=== PATIENT | female | born 1975 | race Two or more races ===

== ENCOUNTER 2024-07-03 18:12 | Inpatient (IN) | payer MEDICAID, SELFPAY ==
[2024-07-03] VITALS (39 sets, daily range): BP systolic 137–204; BP diastolic 84–145; PULSE 72–111; RESP 13–97; TEMP 36.1–37; O2SAT 20–99; BMI 31.0
--- NOTE | 2024-07-03 18:15 | EKG_ITS ---
[facility] Test Date: 2024-07-03 Pat Name: JENIFER HUGHES Department: Room: - Gender: Female Minister: : 1975 Requested By: Joesph Rollins Order Number: [id number] Reading MD: Joesph Rollins Measurements Intervals [place] Rate: 86 P: 39 [place]: 150 QRS: 1 QRSD: 87 T: 13 QT: 382 QTc: 458 Interpretive Statements SINUS RHYTHM MODERATE VOLTAGE CRITERIA FOR LVH, CONSIDER NORMAL VARIANT [MEETS CRITERIA IN ONE OF: R(aVL), S(V1), R(V5), R(V5/V6)+S(V1)] Compared to ECG 12/15/2023 08:56:17 No significant changes /store/S0/[id number].pdf
--- NOTE | 2024-07-03 18:20 | XR_ITS ---
Examination: CT brain head without contrast. 2-D sagittal coronal reconstructions Date and time of exam:July 03, 2024 1824 hrs. Indications: Stroke alert, onset left arm numbness beginning 2.5 hours ago CTDI: vol (mGy):50.3 DLP: (mGycm):997 Technique: Multiple CT axial sections of the brain have been obtained, 5 mm slice thickness. Contrast has not been administered. 2-D sagittal, coronal reconstructions have been obtained Low dose protocols were performed. One or more of the following dose reduction techniques were used; automated exposure control, adjustment of the mA and/or KV according to patient size, use of iterative reconstruction technique. Findings: No significant ventricular enlargement. Intra-axial or extra-axial hemorrhage density is not seen. No mass effect or midline shift Basal cisterns are not remarkable. Fourth ventricle is midline. Cranial vault intact. Impression: Negative for acute hemorrhage, mass effect or midline shift As clinically warranted, brain MRI follow-up would best assess for demyelinating disease, acute ischemic change
--- NOTE | 2024-07-03 18:20 | PC.NURSE ---
PT SENT FROM [facility] WITH C/O STROKE LIKE SYMPTOMS. PER PT LKW AT 1600. SYMPTOM ONSET NOTED BY DAUGHTER. PT REPORTS SLURRED SPEECH, LEFT ARM NUMBNESS, DIZZINESS, AND DIFFICULTY WALKING WITH WEAKNESS TO THE LEFT SIDE.
--- NOTE | 2024-07-03 18:20 | XR_ITS ---
Examination: CTA carotids with intravenous contrast CTA brain, head with intravenous contrast. 2-D sagittal, coronal reconstructions. 3-D reconstructions. Exam date and time: July 03, 2024 at 11 hours Indications: CT stroke alert today, onset focal neurologic deficit CTDI: vol (mGy) 11.2 DLP: (mGycm) 389 Technique: Multiple CTA axial brain, head carotid images post intravenous contrast injection 75 cc, [id number]. 2-D sagittal, coronal reconstructions. 3-D reconstructions, 3-D post processing including vascular maximum intensity projection images. Low dose protocols were performed. One or more of the following dose reduction techniques were used; automated exposure control, adjustment of the mA and/or KV according to patient size, use of iterative reconstruction technique. Findings: No significant common carotid carotid bifurcation or internal carotid artery stenoses No vertebral artery stenoses No large vessel occlusions involving middle cerebral or anterior cerebral artery branches There is poor filling of the posterior cerebral arteries which is probably technical There is poor filling in general of the cerebral vessels Impression: No significant neck arterial stenoses No cerebral large vessel arterial occlusions
--- NOTE | 2024-07-03 18:21 | EDNOTE_ITS ---
ED Dizzyness RME/HPI General Chief Complaint: Dizziness Stated Complaint: POSSIBLE STROKE Time Seen by Provider: 07/03/24 18:20 Arrival date/time: 07/03/24 18:12 RME / HPI RME / HPI Narrative: 49-year-old female patient with significant history of hypertension, came in for evaluation regarding possible strokelike symptoms. Last well-known time 4 PM today. Patient developed sudden onset of dizziness, and walking uneven, leaning to the left side, and numbness to the left upper extremity. Was also noted to be having slurring of her speech. Patient denies any headache denies any weakness to the upper or lower extremity. Denies any other complaint. Stroke alert was initiated right away. Patient is not taking any blood thinner. Related Data Home Medications ?Medication ?Instructions ?Recorded ?Confirmed conjugated estrogens 0.625 mg 0.265 mg PO DAILY 12/15/23 tablet (Premarin) ibuprofen 800 mg tablet 800 mg PO Q8H PRN Pain 12/1412/15/23 Previous Rx's ?Medication ?Instructions ?Recorded hydrocodone 10 mg-acetaminophen 1 tab PO Q6H PRN pain #20 tabs 12/18/23 325 mg tablet Allergies Allergy/AdvReac Type Severity Reaction Status Date / Time NKA* Allergy Uncoded 12/18/23 11:16 Review of Systems Review of Systems Narrative Review of Systems: Review of system reviewed and within normal limits except mentioned in HPI ED Exam Narrative Physical exam: VITAL SIGNS: Reviewed. GENERAL APPEARANCE: Alert and interactive, follows commands, no acute distress, HEAD AND FACE: Non-traumatic. ENT: PERRL, pink conjunctivitis, eyelid no trauma, Mucous membrane moist. NECK: Supple, nontender, no nuchal rigidity. CHEST: No tenderness, no crepitus, no paradoxical movement, no retractions. LUNGS: Clear, well ventilated, symmetric, no rales, no wheezing, no ronchi, no stridor, good breath sounds bilaterally. HEART: Regular rate, regular rhythm, no murmur, no gallops. ABDOMEN: Soft, positive bowel sounds, nondistended, no guarding, nontender, no rebound, no masses, RECTAL: Deferred. GENITAL: Deferred. NEUROLOGICAL: Gross motor function intact sensory function intact, Appropriate for age. MUSCULOSKELETAL: low back nontender, full range of motion. EXTREMITIES: Nontender, full range of motion. SKIN: Color pink, dry, no rash, no lacerations, no abrasions, no contusions. LYMPHATICS: Deferred. Course Quality Measures none Orders Category Date Time Status Bedside Blood Glucose NOW Care 07/03/24 18:20 Active Blood glucose [Bedside Blood Glucose] NOW Care 07/03/24 18:15 Active COVID-19 Screening Questionnaire NOW Care 07/03/24 20:55 Active Ice Cream Mixer NOW Care 07/03/24 18:20 Active Continuous Pulse Oximetry NOW Care 07/03/24 18:20 Completed Decision to Admit X1 Care 07/03/24 20:55 Active EKG (ED ONLY) *Do not use* NOW Care 07/03/24 18:15 Completed EKG (ED ONLY) *Do not use* NOW Care 07/03/24 18:20 Completed In and Out Catheter NEEDED Care 07/03/24 18:20 Active Insert IV NOW Care 07/03/24 18:20 Active NIH Stroke Scale now Care 07/03/24 18:20 Active NPO NOW Care 07/03/24 18:20 Active Nurse Swallow Screen x1 Care 07/03/24 18:20 Active Consult to Neurology / Tele-Neurology Routine Cons 07/03/24 18:[address] angio stroke protocol Stat Exams 07/03/24 18:[address] stroke protocol Stat Exams 07/03/24 18:20 Completed EKG (ED Only) Stat Exams 07/03/24 18:15 Draft EKG (ED Only) Stat Exams 07/03/24 18:20 Ordered CBC Stat Lab 07/03/24 18:20 Completed Comprehensive Metabolic Panel Stat Lab 07/03/24 18:20 Completed Drug Screen,Urine Stat Lab 07/03/24 18:20 Ordered HCG Titer if Positive Stat Lab 07/03/24 18:20 Completed Magnesium Stat Lab 07/03/24 18:20 Completed Partial Thromboplastin Time Stat Lab 07/03/24 18:20 Completed Prothrombin Time with INR Stat Lab 07/03/24 18:20 Completed Troponin I Stat Lab 07/03/24 18:20 Completed Urinalysis Stat Lab 07/03/24 18:20 Ordered Urine Culture Stat Lab 07/03/24 18:20 Ordered Labetalol IV [Trandate IV] Med 07/03/24 19:53 Discontinued 10 mg IVP X1 ONE Labetalol IV [Trandate IV] Med 07/03/24 18:46 Discontinued 100 mg .ROUTE .STK-MED ONE Ondansetron Inj [Zofran Inj] Med 07/03/24 18:20 Active 4 mg IV Q4HR PRN Tenecteplase Inj [TNKase Inj] Med 07/03/24 18:52 Discontinued 21.1 mg IV X1 ONE Tenecteplase Inj [TNKase Inj] Med 07/03/24 18:46 Discontinued 50 mg .ROUTE .STK-MED ONE hydrALAZINE INJ [Apresoline Inj] Med 07/03/24 18:50 Discontinued 20 mg IV X1 ONE hydrALAZINE INJ [Apresoline Inj] Med 07/03/24 19:15 Discontinued 20 mg IV X1 ONE Oxygen Delivery NOW RT 07/03/24 18:20 Active Vital Signs Vital signs: Vital Signs Pulse Rate 86 07/03/24 18:30 Dizziness MDM Narrative MDM Narrative:: 49-year-old female patient with significant history of hypertension, came in for evaluation regarding possible strokelike symptoms. Last well-known time 4 PM today. Patient developed sudden onset of dizziness, and walking uneven, leaning to the left side, and numbness to the left upper extremity. Was also noted to be having slurring of her speech. Patient denies any headache denies any weakness to the upper or lower extremity. Denies any other complaint. Stroke alert was initiated right away. Patient is not taking any blood thinner. Stroke alert was initiated at 615 PM I spoke with teleneurologist, who told me that patient received TNKase. CT scan of the head came back unremarkable. CT angiogram of the head and neck came back unremarkable. Laboratory workup also came back normal. Patient will be admitted to ICU status post TNKase Patient data External records reviewed:: None Clinical information provided by:: patient Social determinants that could affect healthcare access:: none Patient has the following chronic illnesses:: Hypertension How is presenting disease/condition affected by chronic disease/condition?: exacerbated by Evaluation data The following diagnostics were reviewed and interpreted by me:: lab results, radiology exam(s) and EKG tracing(s) Lab and/or radiology exams considered but not ordered:: None Interpretation Summary: EKG showed sinus rhythm, ventricular rate of 86 bpm, no ST segment elevation or depression of the Medications / Prescriptions Medications or Prescriptions considered but not ordered:: 9 Medication administrations:: Medication Administration History Ondansetron HCl (Ondansetron Inj 2 Mg/Ml Inj 2 Ml) 4 mg IV Q4HR PRN PRN Reason: NAUSEA OR VOMITING Stop: 08/02/24 18:19 Discontinued Medications Hydralazine HCl (Hydralazine Inj 20 Mg/Ml Vial) 20 mg IV X1 ONE Stop: 07/03/24 18:51 Last Admin: 07/03/24 18:50 Dose: 20 mg Documented By: SHREE Hydralazine HCl (Hydralazine Inj 20 Mg/Ml Vial) 20 mg IV X1 ONE Stop: 07/03/24 19:16 Last Admin: 07/03/24 18:55 Dose: 20 mg Documented By: SHREE Labetalol HCl (Labetalol Inj 5 Mg/Ml Vial 20 Ml) Confirm Administered Dose 100 mg .ROUTE .STK-MED ONE Stop: 07/03/24 18:47 Last Admin: 07/03/24 19:00 Dose: Not Given Documented By: SHREE Non-Admin Reason: Duplicate Medication on eMAR Labetalol HCl (Labetalol Inj 5 Mg/Ml Vial 20 Ml) 10 mg IVP X1 ONE Stop: 07/03/24 19:54 Tenecteplase (Tenecteplase Inj 50 Mg Vial) Confirm Administered Dose 50 mg .ROUTE .STK-MED ONE Stop: 07/03/24 18:47 Last Admin: 07/03/24 19:00 Dose: Not Given Documented By: VG Non-Admin Reason: Duplicate Medication on eMAR Tenecteplase (Tenecteplase Inj 50 Mg Vial) 21.1 mg IV X1 ONE Stop: 07/03/24 18:53 Last Admin: 07/03/24 18:56 Dose: 21.1 mg Documented By: SHREE Co-signed By: [facility] Labetalol, hydralazine, TNKase Consultations Consultation(s) initiated? (list below): Yes Consultation #1 (Physician, Specialty, Details): Teleneurologist Diagnosis Dizziness Differential Diagnosis: cerebrovascular accident, acute vestibular neuronitis and transient cerebral ischemia Most likely diagnosis given after review of the tests above:: Acute CVA Admission Indicated Admission indicated?: indicated Admission Request Was there a request for admission?: Yes Admission Attestation Admission request attestation: Discussed case with Dr. Alex Leahy] from Hospitalist service regarding admission. Discussed patients ED course, exam findings, labs, and radiology results. The Hospitalist [agrees,] to accept the patient for admission. Disposition Plan Disposition Plan: Admit Discharge Plan Plan Patient Disposition: Admit Acute Care w/in Hospital Prescriptions/Referrals Prescriptions/Med Rec: No Action ibuprofen 800 mg Tablet 800 mg PO Q8H PRN (Reason: Pain) Premarin 0.625 mg tablet 0.265 mg PO DAILY Patient Comments: TOME 1 TABLETA POR V A ORAL TODOS LOS D hydrocodone-acetaminophen 10-325 mg tablet 1 tab PO Q6H MDD 4 PRN (Reason: pain) Qty: 20 0RF Referrals: Ranulfo Mccarty MD [Primary Care Provider] - In 1 week Problem List Clinical Impression: Acute CVA (cerebrovascular accident) Patient/Caregiver Discharge Instructions Print Language: Cypriot Stand Alone Forms: [employer] Award Info., Patient Portal Info Letter
[2024-07-03] MEDS: hydrALAZINE INJ 20 MG/ML VIAL IV ×2 (18:50→18:55)
[2024-07-03 18:51] LABS: Basophils % (Auto) 0 % (0-2.5); Eosinophils # (Auto) 0.1 Thou/mm3 (0.0-0.5); Eosinophils % (Auto) 1 % (0-10); Hematocrit 39.4 % (36.0-46.0); Immature Granulocytes % (Auto) 0 % (0-0); Immature Granulocytes Auto 0.02 Thou/mm3 (0.00-0.00); Lymphocytes # (Auto) 1.6 Thou/mm3 (1.0-4.8); Lymphocytes % (Auto) 21 % (10-50); Mean Corpuscular Hemoglobin 27.2 pg (25.0-35.0); Mean Corpuscular Volume 82 fL (80-100); Monocytes # (Auto) 0.4 Thou/mm3 (0.0-0.8); Monocytes % (Auto) 5 % (0-12); Neutrophils # (Auto) 5.8 Thou/mm3 (1.8-7.7); Neutrophils % (Auto) 73 % (37-80); Nucleated Red Blood Cell % 0 /100 WBC (0); Platelet Count 360 Thou/mm3 (140-440); RDW Standard Deviation 43.8 fL (36.4-46.3); Red Blood Count 4.78 Miln/mm3 (4.00-5.20)
[2024-07-03] MEDS: TENECTEPLASE INJ 50 MG VIAL 21.1 MG IV (18:56)
--- NOTE | 2024-07-03 18:56 | PC.NURSE ---
ORDER GIVEN BY NEUROLOGIST DR MASSIMO DICKEY TO GIVE TNK 21.1MG IV. CHARU RN AT BEDSIDE TO VERIFY. TIME OUT DONE.
[2024-07-03 19:10] LABS: HCG Titer if Positive Negative
[2024-07-03 19:12] LABS: INR 0.9 (0.9-1.3); Prothrombin Time 10.4 Seconds (9.0-12.2)
[2024-07-03 19:17] LABS: Alanine Aminotransferase 15 U/L (10-49); Albumin/Globulin Ratio 1.5 (1.2-2.2); Alkaline Phosphatase 144 U/L (46-116); Anion Gap 12 (7-16); Aspartate Amino Transferase 17 U/L (0-34); BUN/Creatinine Ratio 15 Ratio (12-20); Bilirubin,Total 0.3 mg/dL (0.3-1.2); Blood Urea Nitrogen 12 mg/dL (9-23); Calcium 9.4 mg/dL (8.3-10.6); Calcium (Corrected) 9.4 mg/dL (8.5-10.1); Carbon Dioxide 23.4 mMol/L (20.0-31.0); Chloride 105 mMol/L (98-107); Creatinine (Component) 0.8 mg/dL (0.6-1.3); Estimated Creatinine Clearance 89.4 mL/min (>60); Globulin 3.3 gm/dL (2.3-3.5); Glucose 107 mg/dL (74-106); Magnesium 2.3 mg/dL (1.6-2.6); Osmolality,Calculated 279 (275-295); Potassium 3.7 mMol/L (3.4-5.1); Sodium 140 mMol/L (136-145); Total Protein 8.3 gm/dL (5.7-8.2); Troponin I < 0.002 ng/mL (0.0-0.045); eGFR > 60 See Note
--- NOTE | 2024-07-03 19:18 | ESCONSULT_ITS ---
Tele Neuro Consultation Consultation Date 07/03/24 Most Recent Vital Signs Last Vital Signs Temp 98.2 F 07/03/24 18:31 Pulse 88 07/03/24 18:55 Resp 18 07/03/24 18:31 BP 204/110 H 07/03/24 18:55 Pulse Ox 98 07/03/24 18:31 O2 Del Method Room Air 07/03/24 18:31 Laboratory-Coagulation Panel PT 10.4 Seconds (9.0-12.2) 07/03/24 18:20 INR 0.9 (0.9-1.3) 07/03/24 18:20 APTT 28.0 Seconds (22.0-36.0) 07/03/24 18:20 Consultation Narrative [facility] Tele[facility] Patient Name: Ameena Camarena Date of : 1975 Identification Number: Date of Service: 07/03/2024 18:25:33 Diagnosis: ? I63.89 - Cerebrovascular accident (CVA) due to other mechanism ([facility]) Impression: ? This s a 49 y/o RH woman who had sudden onset of vertigo, veering to the side when walking, nausea, slurred speech, and left arm numbness. She denies visual changes, headache, or neck pain. Initial BP was 199/123 mm Hg requiring treatment with 20 mg IV labetalol. #1 Acute ischemic stroke #2 Left lower extremity paresis, mild #3 Left hemisensory deficit Please admit with continuous cardiac monitoring. Follow post-lytic order set for neuro check and vital sign frequency, as well as blood pressure management. NPO pending a bedside swallow study. Hold all antithrombotics/anticoagulants for 24 hours. Obtain a routine MRI of the brain without gadolinium. Obtain a TTE with bubble study. Obtain a lipid panel and treat with a statin to LDL < 70. Obtain a Hgb A1C and target interventions to A1C < 7. Our recommendations are outlined below. Recommendations: IV Tenecteplase recommended. I confirmed the following. (Patient name, , MRN, Blood Pressure, dose of Thrombolytic and waste, weight completed by stretcher/scale not stated weight, have ED staff inform ED MD of thrombolytic decision) Thrombolytic bolus given Without Complication. IV Tenecteplase Total Dose ? 21.1 mg (Dose Rounding Per Facility Protocol) Routine post Thrombolytic monitoring including neuro checks and blood pressure control during/after treatment Monitor blood pressure Check blood pressure and neuro assessment every 15 min for 2 h, then every 30 min for 6 h, and finally every hour for 16 h. Manage Blood Pressure per post Thrombolytic protocol. ? Follow designated hospital protocol for admission and post thrombolytic care ? CT brain 24 hours post Thrombolytic ? NPO until swallowing screen performed and passed ? No antiplatelet agents or anticoagulants (including heparin for DVT prophylaxis) in first 24 hours ? No Sanders catheter, nasogastric tube, arterial catheter or central venous catheter for 24 hr, unless absolutely necessary ? Telemetry ? Bedside swallow evaluation ? HOB less than 30 degrees ? Euglycemia ? Avoid hyperthermia, PRN acetaminophen ? DVT prophylaxis ? Inpatient Neurology Consultation ? Stroke evaluation as per inpatient neurology recommendations Discussed with ED physician Advanced Imaging: Advanced imaging has been ordered. Results pending. Metrics: Last Known Well: 07/03/2024 16:00:00 Dispatch Time: 07/03/2024 18:25:33 Arrival Time: 07/03/2024 18:12:00 Initial Response Time: 07/03/2024 18:30:41 Symptoms: left arm numbness, slurred speech. Initial patient interaction: 07/03/2024 18:32:37 NIHSS Assessment Completed: 07/03/2024 18:37:54 Patient is a candidate for Thrombolytic. Thrombolytic Medical Decision: 07/03/2024 18:37:55 Needle Time: 07/03/2024 18:56:53 Weight Noted by Staff: 84.[address] shows no hemorrhage, hyperdense vessel sign, or definite acute ischemic changes. Primary Provider Notified of Diagnostic Impression and Management Plan on: 07/03/2024 19:10:18 Extended thrombolytic management related to: Delays related to blood pressure management Thrombolytic Contraindications: Last Known Well > 4.5 hours: No CT Head showing hemorrhage: No Ischemic stroke within 3 months: No Severe head trauma within 3 months: No Intracranial/intraspinal surgery within 3 months: No History of intracranial hemorrhage: No Symptoms and signs consistent with an SAH: No GI malignancy or GI bleed within 21 days: No Coagulopathy: Platelets <100 000 /mm3, INR >1.7, aPTT>40 s, or PT >15 s: No Treatment dose of LMWH within the previous 24 hrs: No Use of NOACs in past 48 hours: No Glycoprotein IIb/IIIa receptor inhibitors use: No Symptoms consistent with infective endocarditis: No Suspected aortic arch dissection: No Intra-axial intracranial neoplasm: No Thrombolytic Decision and Management Plan: Management with thrombolytic treatment was explained to the Patient as was risks and benefits and alternatives to the treatment. Patient agrees with the decision to proceed with thrombolytic treatment. . All questions were answered and the Patient expressed understanding of the treatment plan. History of Present Illness: Patient is a 49 year old Female. Patient was brought by EMS for symptoms of left arm numbness, slurred speech. This s a 49 y/o RH woman who had sudden onset of vertigo, veering to the side when walking, nausea, slurred speech, and left arm numbness. She denies visual changes, headache, or neck pain. She is less dizzy now and is no longer nauseated. She still feels numbness of her left arm. Past Medical History: ? Hypertension ? Hyperlipidemia ? There is no history of Diabetes Mellitus Medications: No Anticoagulant use No Antiplatelet use Reviewed EMR for current medications Allergies: Reviewed Social History: Smoking: No Family History: There is no family history of premature cerebrovascular disease pertinent to this consultation ROS : 14 Points Review of Systems was performed and was negative except mentioned in HPI. Past Surgical History: There Is No Surgical History Contributory To Today?s Visit Examination: BP(177/92), Pulse(104), Blood Glucose(114) 1A: Level of Consciousness - Alert; keenly responsive + 0 1B: Ask Month and Age - Both Questions Right + 0 1C: Blink Eyes & Squeeze Hands - Performs Both Tasks + 0 2: Test Horizontal Extraocular Movements - Normal + 0 3: Test Visual Stevens - No Visual Loss + 0 4: Test Facial Palsy (Use Grimace if Obtunded) - Normal symmetry + 0 5A: Test Left Arm Motor Drift - No Drift for 10 Seconds + 0 5B: Test Right Arm Motor Drift - No Drift for 10 Seconds + 0 6A: Test Left Leg Motor Drift - Drift, but doesn't hit bed + 1 6B: Test Right Leg Motor Drift - No Drift for 5 Seconds + 0 7: Test Limb Ataxia (FNF/Heel-Ace) - No Ataxia + 0 8: Test Sensation - Mild-Moderate Loss: Less Sharp/More Dull + 1 9: Test Language/Aphasia - Normal; No aphasia + 0 10: Test Dysarthria - Mild-Moderate Dysarthria: Slurring but can be understood + 1 11: Test Extinction/Inattention - No abnormality + 0 NIHSS Score: 3 NIHSS Free Text : reduced sensation left face, arm, and leg 84.6 kg Pre-Morbid Modified [place] Scale: 0 Points = No symptoms at all Spoke with : ED physician This consult was conducted in real time using interactive audio and video technology. Patient was informed of the technology being used for this visit and agreed to proceed. Patient located in hospital and provider located at home/office setting. Patient is being evaluated for possible acute neurologic impairment and high probability of imminent or life-threatening deterioration. I spent total of 35 minutes providing care to this patient, including time for face to face visit via telemedicine, review of medical records, imaging studies and discussion of findings with providers, the patient and/or family. Dr Chica Corbin [facility] For Inpatient follow-up with [facility] physician please call [facility] at . As we are not an outpatient service for any post hospital discharge needs please contact the hospital for assistance. If you have any questions for the [facility] physicians or need to reconsult for clinical or diagnostic changes please contact us via [facility] at .
--- NOTE | 2024-07-03 21:35 | ESHP_ITS ---
Documentation for date of: 07/03/24 [facility] History of Present Illness Chief complaint: dizziness History of present illness: Patient is a pleasant 49 year old female with PMH of HTN who presents to the ER for dizziness and imbalance. Last well known 4pm when patient started to feel imbalanced like she was veering off to the left associated with vision changes and left sided numbness and weakness. Patient took her BP which showed systolic in the 200s. Family noticed she had some slurred speech and recommended to take to her to the ER. Patient opted to go to the clinic where she was told to go to ER. Endorses headache and weakness. Denies fever, nausea, vomiting, chest pain, current stomach pain, dysuria, constipation, diarrhea. Denies previous episodes. SH: lives with adult kids and grandson, ambulatory at baseline, denies smoking/alcohol/illicit drug use PSH: R breast mass removed, hysterectomy FH: mother of stroke Allergies: remote history of itching to an anti-cholesterol medication but does not remember name, patient ok with trying atorvastatin if needed In the ER, stroke alert was called. Vitals significant for hypertension 204/145. Head CT and CTA were negative. EKG no ST changes. NIHHS Score of 3. Tele-neuro was consulted. Patient was given tenecteplase. Upon re-evaluation, patient is AAOx3. Bilateral strength intact. Per family at bedside, symptoms improved but not resolved. Review of Systems Review of Systems Systems Reviewed: All systems reviewed, normal except as documented Exam Vital Signs Temp Pulse Resp BP Pulse Ox O2 Del Method 97.5 F 81 18 149/90 H 97 Room Air 07/03/24 21:10 07/03/24 21:10 07/03/24 21:10 07/03/24 21:10 07/03/24 21:10 07/03/24 21:10 Narrative Exam Constitutional: NAD. AAOx3. Awake, pleasant. HEENT: NCAT. Vision grossly intact. Mucous membranes moist. No facial droop appreciated. Respiratory: CTAB bilaterally. Cardiac: RRR. Abdomen: Soft, non-distended, non-tender. No guarding, no rebound. MSK: No B/L LE edema. Skin: Warm, dry, intact. Neuro: Motor and sensation grossly intact. Mild dysarthria. Patient endorses some weakness on left arm but strength is 5/5. Left sided numbness on face and left arm. CN II-XII grossly intact. Psychiatric: Appropriate mood and affect. Results: Labs 07/03/24 18:20 07/03/24 18:20 Labs: Short CBC 07/03/24 Range/Units 18:20 WBC 8.0 (3.6-11.0) Thou/mm3 Hgb 13.0 (12.0-16.0) g/dL Hct 39.4 (36.0-46.0) % Plt Count 360 (140-440) Thou/mm3 BMP 07/03/24 18:20 Sodium 140 Potassium 3.7 Chloride 105 Carbon Dioxide 23.4 BUN 12 Creatinine 0.8 Glucose 107 H Calcium 9.4 Cardiac Enzymes 07/03/24 Range/Units 18:20 Troponin I < 0.002 (0.0-0.045) ng/mL Liver Function 07/03/24 Range/Units 18:20 Total Bilirubin 0.3 (0.3-1.2) mg/dL AST 17 (0-34) U/L ALT 15 (10-49) U/L Alkaline Phosphatase 144 H (46-116) U/L Albumin 5.0 (3.5-5.0) gm/dL Quality Measures Quality Measures none Medications Home Medications and Allergies Home Medications ?Medication ?Instructions ?Recorded ?Confirmed ?Type conjugated estrogens 0.625 mg 0.265 mg PO DAILY 12/15/23 History tablet (Premarin) ibuprofen 800 mg tablet 800 mg PO Q8H PRN Pain 12/1412/15/23 History Allergies Allergy/AdvReac Type Severity Reaction Status Date / Time NKA* Allergy Uncoded 12/18/23 11:16 Visit Medications Ondansetron HCl (Ondansetron Inj 2 Mg/Ml Inj 2 Ml) 4 mg IV Q4HR PRN PRN Reason: NAUSEA OR VOMITING Stop: 08/02/24 18:19 Discontinued Medications Hydralazine HCl (Hydralazine Inj 20 Mg/Ml Vial) 20 mg IV X1 ONE Stop: 07/03/24 18:51 Last Admin: 07/03/24 18:50 Dose: 20 mg Hydralazine HCl (Hydralazine Inj 20 Mg/Ml Vial) 20 mg IV X1 ONE Stop: 07/03/24 19:16 Last Admin: 07/03/24 18:55 Dose: 20 mg Labetalol HCl (Labetalol Inj 5 Mg/Ml Vial 20 Ml) 10 mg IVP X1 ONE Stop: 07/03/24 19:54 Tenecteplase (Tenecteplase Inj 50 Mg Vial) 21.1 mg IV X1 ONE Stop: 07/03/24 18:53 Last Admin: 07/03/24 18:56 Dose: 21.1 mg Assessment & Plan Plan Patient is a 49 year old female with PMH of HTN who presents to the ER for dizziness and admitted for acute stroke s/p tenecteplase. 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 NIHHS Score 3. Head CT, CTA negative. Tenecteplase given in ED. Target BP < 185/110 Neuro checks q15m x 2 hours, q30min x 6 hrs, then q1 x 16hrs Monitor for signs of bleeding Check TSH, A1c, lipid panel after 24hrs post-tenecteplase Echo, MRI stroke Neuro Dr. King consulted CARDIOVASCULAR #History of HTN Hold home BP meds, goal BP <185/110 RESPIRATORY No acute problems RENAL No acute problems GI No acute problems ENDO No acute problems HEME No acute problems Avoid chemical anticoagulation x 24 hours ID No acute problems Health Maintenance Disposition: Admit to ICU for stroke rule out s/p tencteplase Diet and fluids: npo bending bedside swallow screen DVT prophylaxis: SCD GI prophylaxis: none CODE STATUS: FULL I have reviewed and discussed the patient's care with my attending, Dr. Jessica Peterson MD PGY-3 Attending Provider Attestation/Addendum I have examined the patient, reviewed labs and imaging findings, discussed the case with the resident(s), and reviewed entered orders. I agree with the plan of care as outlined in this note, with these additional summaries/recommendations: Patient is a 49-year-old female with a medical history of hyperlipidemia, primary hypertension, allergies, and previous hysterectomy on conjugated estrogens presented to [facility] emergency department on 07/03/2024 with sudden onset of vertigo, uneven walking and leaning to the left side, slurred speech, and left arm numbness. Stroke alert was called in the emergency department and was given IV tenecteplase. Patient will be admitted to the ICU for further management. Patient seen at bedside. She feels like her symptoms have slightly improved since presentation. NIHSS score of 3 on admission. Teleneurology was consulted and patient was given tenecteplase as there was no thrombolytic contraindications. Patient will be admitted to the ICU. Continue routine postthrombolytic blood pressure control. Continue neurochecks every 15 minutes x 2 hours, then every 30 minutes x 6 hours, and then finally every hour for 16 hours. Order MRI brain. CT head on admission was negative for acute hemorrhage, mass effect or midline shift. No LVO seen on CTA of head and neck. N.p.o. until swallow screen. Refer to speech therapy and physical therapy. No antiplatelet agents for the first 24 hours and avoid any indwelling catheters/tubes unless absolutely necessary. Order lipid panel, A1c, & TSH. Order echocardiogram with bubble study. Start high intensity statin if passes swallow eval. Consult in-house neurology. She does report she takes conjugated estrogens given her previous hysterectomy and recommend discontinuing for now. Patient updated on the plan at bedside and in agreement. All questions answered to satisfaction. Dr. Jessica MD
--- NOTE | 2024-07-03 21:57 | ECHO_ITS ---
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 16 - 28 cm?/m? Ascending Aorta Diameter 2.5 cm DOPPLER AV Peak Velocity 162.0 cm/s AV Peak Gradient 10.5 mmHg AV Mean Gradient 5.0 mmHg AV Velocity Time Integral 32.6 cm LVOT Peak Velocity 126.0 cm/s LVOT Peak Gradient 6.4 mmHg LVOT Velocity Time Integral 27.3 cm LVOT Cardiac Index 2662.5 cm?/min?m? AV Area Cont Eq vti 2.1 cm? AV Area Cont Eq pk 2.0 cm? MV Area PHT 4.0 cm? Mitral E Point Velocity 67.9 cm/s Mitral A Point Velocity 88.3 cm/s Mitral E to A Ratio 0.8 LV E' Lateral Velocity 11.9 cm/s Mitral E to LV E' Lateral Ratio 5.7 LV E' Septal Velocity 6.0 cm/s Mitral E to LV E' Septal Ratio 11.4 TR Peak Velocity 242.0 cm/s TR Peak Gradient 23.4 mmHg PV Peak Velocity 103.0 cm/s PV Peak Gradient 4.2 mmHg FINDINGS Left Ventricle Normal left ventricular size, wall thickness, systolic function with no obvious regional wall motion abnormalities. Normal left ventricular diastolic filling pattern for age. The ejection fraction is visually estimated at 55 %. There is grade I diastolic dysfunction. Right Ventricle The right ventricle is normal in size and systolic function. Left Atrium The left atrium is normal by two-dimensional, color flow and Doppler imaging with no structural abnormalities, no thrombus formation present. Right Atrium The right atrium is normal by two-dimensional imaging, color flow and Doppler imaging with no structural abnormalities, no thrombus formation present. Atrial Septum The interatrial septum appears normal with no evidence of a shunt. Aorta The aorta is normal by two-dimensional, color flow and Doppler interrogation. Mitral Valve Trace mitral regurgitation. Aortic Valve The aortic valve is trileaflet and normal by two-dimensional, color flow and Doppler interrogation. There is no significant aortic valve regurgitation. Tricuspid Valve There is trace tricuspid valve regurgitation. Pulmonic Valve The pulmonic valve is not well visualized. There is no significant pulmonic valve regurgitation. Vessels The pulmonary artery appears normal. The inferior vena cava pulmonary and hepatic veins appear normal. Pericardium The pericardium is normal by two-dimensional imaging. There is no significant pericardial effusion. CONCLUSIONS Indication: Stroke rule out Negative bubble study. Consider ALEC if high index of clinical suspicion. Normal LVsize and function. Estimated EF 55%. There is grade I diastolic dysfunction. RV is normal in size and systolic function. Trace MR and TR. Josue Whitehead (Electronically Signed) Final Date: 05 July 2024 16:57
--- NOTE | 2024-07-03 22:05 | PD.EDADDENDU ---
Emergency Room Addendum Addendum Narrative: Patient was evaluated by Dr. Lopez, who told me that patient needs CT angiogram of the abdomen pelvis. Before they decided to admit the patient return to floor or in the ICU. Care transferred to Dr Marti for the CT results.
[2024-07-03 22:56] LABS: Collection Type, Urine Clean Catch; RBC,Urine 0 /hpf (0-3); WBC,Urine 0 /hpf (0-5)
[2024-07-03 23:05] LABS: Bilirubin,Urine Negative (Negative); Blood,Urine Negative (Negative); Clarity,Urine Clear (Clear/Hazy); Color,Urine Colorless (Lt Yel-Yel); Glucose, Urine Negative (Negative); Ketones,Urine Negative (Negative); Leukocyte Esterase,Urine Negative (Negative); Nitrite,Urine Negative (Negative); PH,Urine 7.5 (5.0-7.0); Protein,Urine Negative (Neg - Trace); Specific Gravity,Urine 1.028 (1.001-1.035); Squamous Epithelial Cell,Urine < 1 /hpf (0-5); Urobilinogen,Urine Negative mg/dL (0.0-1.0)
[2024-07-03 23:42] LABS: Amphetamine/Methamp Scrn,U Negative (Negative); Barbiturate Screen,Urine Negative (Negative); Benzodiazepines Screen,Urine Negative (Negative); Benzoylecgonine Screen, Ur Negative (Negative); Fentanyl Screen,Urine Negative (Negative); Opiate Screen,Urine Negative (Negative); THC Screen,Urine Negative (Negative)
[2024-07-04] VITALS (42 sets, daily range): BP systolic 104–192; BP diastolic 66–121; PULSE 58–98; RESP 10–99; TEMP 35.8–36.8; O2SAT 96–99
--- NOTE | 2024-07-04 03:34 | PC.NURSE ---
DR. MCDANIEL MADE AWARE OF PT C/O OF HEAVINESS TO LLE, BLANCHARD 03/29, AND REQUESTING WATER. PASSED SWALLOW EVAL. WATER OK TO HAVE. NO FURTHER ORDERS
[2024-07-04 05:25] LABS: Basophils % (Auto) 1 % (0-2.5); Eosinophils # (Auto) 0.1 Thou/mm3 (0.0-0.5); Eosinophils % (Auto) 1 % (0-10); Hematocrit 37.6 % (36.0-46.0); Immature Granulocytes % (Auto) 0 % (0-0); Immature Granulocytes Auto 0.01 Thou/mm3 (0.00-0.00); Lymphocytes # (Auto) 1.5 Thou/mm3 (1.0-4.8); Lymphocytes % (Auto) 23 % (10-50); Mean Corpuscular HGB Conc 31.9 g/dl (31.0-37.0); Mean Corpuscular Volume 85 fL (80-100); Monocytes # (Auto) 0.4 Thou/mm3 (0.0-0.8); Monocytes % (Auto) 6 % (0-12); Neutrophils # (Auto) 4.4 Thou/mm3 (1.8-7.7); Neutrophils % (Auto) 69 % (37-80); Nucleated Red Blood Cell % 0 /100 WBC (0); Platelet Count 330 Thou/mm3 (140-440); RDW Standard Deviation 44.9 fL (36.4-46.3); Red Blood Count 4.45 Miln/mm3 (4.00-5.20); White Blood Count 6.4 Thou/mm3 (3.6-11.0)
[2024-07-04 06:05] LABS: Anion Gap 12 (7-16); BUN/Creatinine Ratio 13 Ratio (12-20); Blood Urea Nitrogen 9 mg/dL (9-23); Calcium 9.2 mg/dL (8.3-10.6); Carbon Dioxide 23.4 mMol/L (20.0-31.0); Cardiac Risk Estimate 7.4 RATIO (3.7-5.6); Chloride 106 mMol/L (98-107); Cholesterol 320 mg/dL (132-200); Creatinine (Component) 0.7 mg/dL (0.6-1.3); Estimated Creatinine Clearance 102.1 mL/min (>60); Glucose 112 mg/dL (74-106); HDL Cholesterol 43 mg/dL (40-60); Osmolality,Calculated 280 (275-295); Potassium 3.6 mMol/L (3.4-5.1); Sodium 141 mMol/L (136-145); Triglycerides 472 mg/dL (30-150); eGFR > 60 See Note
[2024-07-04 06:21] LABS: Thyroid Stimulating Hormone 2.86 uIU/mL (0.55-4.78)
[2024-07-04 06:37] LABS: Glucose Estimated Average 111 mg/dL (80-131); Hemoglobin A1C 5.5 % Hgb (4.8-6.0)
--- NOTE | 2024-07-04 10:45 | PC.SS ---
Initial assessment: patient is a 49 year old female admitted to ICU for stroke. Patient's home address: [address] [facility] [address]. Patient resides with spouse, and two children. Patient's emergency contact is sonBakari. Patient able to complete ADL's prior to admission, no use of home DME. Patient follows [facility] with provider Phuong. Patient pharmacy: [facility] in [facility]. Patient's discharge plan is to return home, family able to provide transportation. No current needs identified at this time. D/c plan: home Next of kin: Bkaari curiel
--- NOTE | 2024-07-04 11:16 | PD.RESCONSUL ---
HPI Data of Consult Requesting Physician: Lori Way MD Admitting Provider: Alfredo Lopez MD Attending Provider: Lori Way MD Primary Care Provider: Ranulfo Mccarty MD Consult Narrative History of present illness: 49-year-old woman with past medical history of hypertension, hyperlipidemia, prediabetes, menopause following hormonal replacement therapy who was admitted [facility] for stroke rule out. Neurology was consulted patient stated that yesterday while she was seen TV with her daughter and stand up to go to the bathroom felt some weakness unstable gait as she was not feeling good for which she took a shower and later started to present slurred speech for which she went to her PCP and they told her her blood pressure was in the 200s and that she will need to go to the ER. Stroke alert was called and HHS on admission was 3, teleneurologist was consulted and patient was in the window for tenecteplase due to the patient came to the ER 2.5 hours after symptoms started and patient received tenecteplase 21.1 mg IV for today ICU for close monitoring ED course: Initial vitals: BP 204/145, pulse 86 RR 18 saturating 98% on room air Pertinent labs: None relevant CBC or CMP lipid panel showed dyslipidemia with triglycerides 472 and cholesterol 220, cholesterol/HDL ratiol 7.4, TSH within normal limits Imaging: Head CT was negative for acute hemorrhage, mass effect or midline shift, head/neck CTA showed no large vessel occlusions or anterior cerebral artery branches, poor filling of the posterior cerebral artery, poor filling in general of the cerebral vessels. 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 Neck: Supple, No masses, No adenopathy, carotid pulse 2+ bilaterally without bruits, No JVD, normal range of motion. Chest: Symmetrical, atraumatic, and with equal expansion , Nontender on palpation no deformity and no crepitus. CVS: S1 and S2 present, Regular rate and rhythm, No murmurs, rubs or gallops perceived during auscultation. Lungs: Normal respiratory effort, CTAB, no wheezing, rhonchi or rales perceived during auscultation, No intercostal or subcostal retraction. Abdomen : Soft, no tenderness to palpation, no guarding ,no rebound, +BS, no organomegaly. Extremities: No edema, warm well perfused, normal tone and ROM, cap refill less than 2, +2 dp equal bilaterally, able to move all 4 extremities spontaneously. 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 Results Labs 07/04/24 04:52 07/04/24 04:52 Labs: Short CBC 07/03/24 07/04/24 Range/Units 18:20 04:52 WBC 8.0 6.4 (3.6-11.0) Thou/mm3 Hgb 13.0 12.0 (12.0-16.0) g/dL Hct 39.4 37.6 (36.0-46.0) % Plt Count 360 330 D (140-440) Thou/mm3 BMP 07/03/24 07/04/24 18:20 04:52 Sodium 140 141 Potassium 3.7 3.6 Chloride 105 106 Carbon Dioxide 23.4 23.4 BUN 12 9 Creatinine 0.8 0.7 Glucose 107 H 112 H Calcium 9.4 9.2 Cardiac Enzymes 07/03/24 Range/Units 18:20 Troponin I < 0.002 (0.0-0.045) ng/mL Liver Function 07/03/24 Range/Units 18:20 Total Bilirubin 0.3 (0.3-1.2) mg/dL AST 17 (0-34) U/L ALT 15 (10-49) U/L Alkaline Phosphatase 144 H (46-116) U/L Albumin 5.0 (3.5-5.0) gm/dL Urine 07/03/24 Range/Units 22:46 Urine Color Colorless A (Lt Yel-Yel) Urine Clarity Clear (Clear/Hazy) Urine pH 7.5 H (5.0-7.0) Ur Specific [place] 1.028 (1.001-1.035) Urine Protein Negative (Neg - Trace) Urine Glucose (UA) Negative (Negative) Quality Measures Quality Measures none Medications Home Medications and Allergies Home Medications ?Medication ?Instructions ?Recorded ?Confirmed ?Type conjugated estrogens 0.625 mg 0.265 mg PO DAILY 12/15/23 12/15/23 History tablet (Premarin) ibuprofen 800 mg tablet 800 mg PO Q8H PRN Pain 12/15/23 12/15/23 History Allergies Allergy/AdvReac Type Severity Reaction Status Date / Time No Known Allergies Allergy Unverified 07/04/24 08:20 Visit Medications Atorvastatin Calcium (Atorvastatin Calcium 20 Mg Tablet) 80 mg PO HS FRANK Stop: 08/03/24 20:59 Labetalol HCl (Labetalol Inj 5 Mg/Ml Vial 20 Ml) 10 mg IVP [id number] PRN PRN Reason: SBP>180 or DBP>105and HR <100 Ondansetron HCl (Ondansetron Inj 2 Mg/Ml Inj 2 Ml) 4 mg IV Q4HR PRN PRN Reason: NAUSEA OR VOMITING Stop: 08/02/24 18:19 Discontinued Medications Hydralazine HCl (Hydralazine Inj 20 Mg/Ml Vial) 20 mg IV X1 ONE Stop: 07/03/24 18:51 Last Admin: 07/03/24 18:50 Dose: 20 mg Hydralazine HCl (Hydralazine Inj 20 Mg/Ml Vial) 20 mg IV X1 ONE Stop: 07/03/24 19:16 Last Admin: 07/03/24 18:55 Dose: 20 mg Labetalol HCl (Labetalol Inj 5 Mg/Ml Vial 20 Ml) 10 mg IVP X1 ONE Stop: 07/03/24 19:54 Last Admin: 07/03/24 20:00 Dose: Not Given Labetalol HCl (Labetalol Inj 5 Mg/Ml Vial 20 Ml) 10 mg IVP [id number] PRN PRN Reason: SBP>180 or DBP>110 and HR <100 Tenecteplase (Tenecteplase Inj 50 Mg Vial) 21.1 mg IV X1 ONE Stop: 07/03/24 18:53 Last Admin: 07/03/24 18:56 Dose: 21.1 mg Assessment & Plan Plan #Acute ischemic stroke Patient was in her usual state of health when she started to present unsteady gait and dizziness At the ED blood pressure was 204/145 consistent with hypertensive emergency Patient stated that was on hormone replacement therapy and was recently switched from p.o. medications to patches Due to patient presented slurred speech and left hemiparesis stroke alert was called and teleneurologist recommend tenecteplase the patient was in the 2.5-hour window Symptoms improved after ministration of IV tenecteplase and patient was transferred to the ICU for close monitoring lipid panel showed dyslipidemia with triglycerides 472 and cholesterol 220, cholesterol/HDL ratiol 7.4, TSH within normal limits Head CT was negative for acute hemorrhage, mass effect or midline shift, head/neck CTA showed no large vessel occlusions or anterior cerebral artery branches, poor filling of the posterior cerebral artery, poor filling in general of the cerebral vessels. Plan: ? Atorvastatin 80 mg p.o. q. night ? Echo bubble study pending ? Brain MRI per stroke protocol pending ? Stop estrogen patch for hormone replacement therapy ? Continue physical therapy #Dyslipidemia Patient lipid panel show dyslipidemia with triglyceride 474 cholesterol 228 cholesterol/HDL ratio 7.4 ? Atorvastatin 80 mg p.o. q. night #Hypertensive emergency resolved Plan: ? Monitor blood pressure BP goal <185/110 ? Okay to give labetalol 10 mg IV push as needed Patient discussed with my attending Dr Christine Jin MD PGY-3 Disclaimer: Despite multiple revisions, due to the dictation software being used, the document bellow may not be free of grammatical errors including phonetic/typographic errors. However, this does not deter from our commitment to providing health care in the patient's best interest in mind. Attending Provider Attestation/Addendum I personally have seen and examined the patient at the bedside and I agree with resident assessment and plan of care. Patient does not have any focal neurological deficit significantly at present moment. Will continue to monitor her blood pressure closely and will administer labetalol 10 mg. -Follow-up with EEG when it becomes available.
--- NOTE | 2024-07-04 11:56 | PC.PT ---
PT eval only. Patient is xI with bed mobility, transfer, and ambulation. Patient is safe to ambulate in the halls and to the toilet with 1 staff assist and no DME. RN made aware.
--- NOTE | 2024-07-04 13:12 | PD.RESPRO ---
Documentation for date of: 07/04/24 Subjective Subjective Interval history: No acute overnight events, patient passed swallow eval and speech pathology eval. Walking with physical therapy. 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 Pending MRI and head CT 24 hrs post tpa. Patiet will be downgraded later today at completion of 24 hrs, and no brain bleeds on scan. Exam Vital Signs Temp Pulse Resp BP Pulse Ox O2 Del Method 97.2 F 82 19 169/89 H 99 Room Air 07/04/24 12:00 07/04/24 12:15 07/04/24 12:15 07/04/24 12:15 07/04/24 12:15 07/04/24 07:00 Narrative Exam GENERAL: Awake, alert and oriented. No acute distress. HEENT: Normocephalic, atraumatic and nontender.? Pupils are equal and reactive to light and accommodation.? Oral mucosamoist. NECK: Supple without adenopathy. [place] midline. Nontender, carotid pulse 2+ bilaterally without bruits, no JVD.? CHEST: Heart rate and rythm normal, no murmurs, gallops auscultated. S1 & 2 normal insensity. Nontender on palpation, no deformity and no crepitus. LUNGS: Lung sounds are clear.? No wheezing, rales or ronchi.? No intercostal subcostal retraction. Room air ABDOMEN: Soft,symmetric , nontender, no guarding or rebound tenderness. No abnormal masses palpated.? No pulsatile masses or bruits.? Bowel sounds are normoactive in all 4 quadrants. EXTREMITIES: Nontender.? No pitting edema.? No cyanosis.? Patient is able to move all 4 extremities. SKIN: No rashes noted. NEURO:? Cranial nerves intact.? Left uper extremity weakness compared to right. NIHHS0 Objective Labs 07/04/24 04:52 07/04/24 04:52 Labs: Laboratory Results - last 24 hr 07/03/24 07/03/24 07/04/24 18:20 22:46 04:52 WBC 8.0 6.4 RBC 4.78 4.45 Hgb 13.0 12.0 Hct 39.4 37.6 MCV 82 85 MCH 27.2 27.0 MCHC 33.0 31.9 RDW Std Deviation 43.8 44.9 Plt Count 360 330 D Neut % (Auto) 73 69 Lymph % (Auto) 21 23 [place] % (Auto) 5 6 Eos % (Auto) 1 1 Baso % (Auto) 0 1 Neut # (Auto) 5.8 4.4 Lymph # (Auto) 1.6 1.5 [place] # (Auto) 0.4 0.4 Eos # (Auto) 0.1 0.1 Baso # (Auto) 0.0 0.0 Immature Gran # (Auto) 0.02 H 0.01 H Absolute Nucleated RBC 0.00 0.00 Immature Gran % 0 0 Nucleated RBC % 0 0 PT 10.4 INR 0.9 APTT 28.0 Sodium 140 141 Potassium 3.7 3.6 Chloride 105 106 Carbon Dioxide 23.4 23.4 Anion Gap 12 12 BUN 12 9 Creatinine 0.8 0.7 Estim Creat Clear Calc 89.4 102.1 eGFR > 60 > 60 BUN/Creatinine Ratio 15 13 Glucose [address] Glu mg/dL 111 Hemoglobin A1c 5.5 Calculated Osmolality 279 280 Calcium 9.4 9.2 Corrected Calcium 9.4 Magnesium 2.3 Total Bilirubin 0.3 AST 17 ALT 15 Alkaline Phosphatase 144 H Troponin I < 0.002 Total Protein 8.3 H Albumin 5.0 Globulin 3.3 Albumin/Globulin Ratio 1.5 Triglycerides 472 H Cholesterol 320 H LDL Cholesterol, Calc TNP HDL Cholesterol 43 Cholesterol/HDL Ratio 7.4 H TSH 2.86 Ur Collection Type Clean Catch Urine Color Colorless A Urine Clarity Clear Urine pH 7.5 H Ur Specific [place] 1.028 Urine Protein Negative Urine Glucose (UA) Negative Urine Ketones Negative Urine Blood Negative Urine Nitrite Negative Urine Bilirubin Negative Urine Urobilinogen (Auto) Negative Ur Leukocyte Esterase Negative Urine RBC 0 Urine WBC 0 Ur Squamous Epith Cells < 1 Urine Bacteria None Urine Opiates Screen Negative Urine Fentanyl Screen Negative Ur Barbiturates Screen Negative U Amphetamin/Meth Scrn Negative U Benzodiazepines Scrn Negative U Cocaine Metab Screen Negative U Marijuana (THC) Screen Negative HCG (Qual) Negative Quality Measures Quality Measures none Assessment & Plan Assessment Current Active Medications: Generic Name Dose Route Start Last Admin Trade Name Freq PRN Reason Stop Dose Admin Atorvastatin Calcium 80 mg 07/04/24 21:00 Atorvastatin Calcium 20 Mg Tablet PO 08/03/24 20:59 HS FRANK Labetalol HCl 10 mg 07/03/24 22:25 Labetalol Inj 5 Mg/Ml Vial 20 Ml IVP PRNMRX1 PRN SBP>180 or DBP>105and HR <100 Ondansetron HCl 4 mg 07/03/24 18:20 Ondansetron Inj 2 Mg/Ml Inj 2 Ml IV 08/02/24 18:19 Q4HR PRN NAUSEA OR VOMITING Plan Patient is a 49 year old female with PMH of HTN who presents to the ER for dizziness and admitted for acute stroke s/p tenecteplase. 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 Head CT, CTA negative. Tenecteplase given in ED at 6:56 pm Neuro checks q15m x 2 hours, q30min x 6 hrs, then q1 x 16hrs Monitor for signs of bleeding Check TSH, A1c, lipid panel after 24hrs post-tenecteplase Echo, MRI stroke Neuro Dr. King consulted CT 24 hrs post tnk, if no bleed downgrade to floors CARDIOVASCULAR #History of HTN Hold home BP meds, goal BP <185/110 RESPIRATORY No acute problems RENAL No acute problems GI No acute problems ENDO No acute problems HEME No acute problems Avoid chemical anticoagulation x 24 hours ID No acute problems Health Maintenance Disposition: Admit to ICU for stroke rule out s/p tencteplase Diet and fluids: npo bending bedside swallow screen DVT prophylaxis: SCD GI prophylaxis: none CODE STATUS: FULL I have reviewed and discussed the patient's care with my attending, Dr. Seamus Paz MD PGY-3 Attending Provider Attestation/Addendum Patient seen and examined with resident. Agree with above. In brief this a 49-year-old female who presented yesterday to the ER as a code stroke. She had left-sided weakness and some slurred speech. She was given tPA and admitted to the ICU for further management and evaluation. Overnight there have been no acute events. On physical exam she appears to have some subtle decrease in strength on her left upper and left lower extremities however has greatly improved from arrival. She is awake alert oriented and conversant. Lungs are clear and heart rate is regular and rhythmic, no bruits or murmurs, abdomen is soft and nontender. When she has completed her 24 hours status post tPA in the ICU she can be downgraded to telemetry. She is to complete her stroke workup. Case discussed with ICU team Labs, imaging and records reviewed Approximately 35 minutes required for evaluation, exam, review, intervention, discussion and formulation of plan of care
[2024-07-04] MEDS: LABETALOL INJ 5 MG/ML VIAL 20 ML 10 MG IVP (19:12)
--- NOTE | 2024-07-04 20:39 | XR_ITS ---
Examination: CT brain head without contrast. 2-D sagittal coronal reconstructions Date and time of exam:July 05, 2024 0406 hrs. CTDI: vol (mGy):43.4 DLP: (mGycm):1002 Technique: Multiple CT axial sections of the brain have been obtained, 5 mm slice thickness. Contrast has not been administered. 2-D sagittal, coronal reconstructions have been obtained Low dose protocols were performed. One or more of the following dose reduction techniques were used; automated exposure control, adjustment of the mA and/or KV according to patient size, use of iterative reconstruction technique. Findings: No significant ventricular enlargement. Intra-axial or extra-axial hemorrhage density is not seen. No mass effect or midline shift Basal cisterns are not remarkable. Fourth ventricle is midline. Cranial vault intact. Impression: Negative for acute hemorrhage, mass effect or midline shift
[2024-07-04] MEDS: ATORVASTATIN CALCIUM 20 MG TABLET 80 MG PO (20:43)
--- NOTE | 2024-07-04 22:00 | PC.NURSE ---
Called CT to notify that pt still needs a head CT. ruling technician stated that she is still busy with ED patients and will call when available
--- NOTE | 2024-07-04 23:03 | EVENTNT_ITS ---
Documentation for date of: 07/04/24 Event Note Event Note: The patient is a 49-year-old female with a previous medical history of hypertension, hyperlipidemia, prediabetes who was admitted on 07/03/2024 due to sudden onset of vertigo, veering to the side when walking, nausea, slurred sp eech and left arm numbness. Teleneuro was consulted, NIHSS 3 and the patient was a candidate for tenecteplase therapy. Noncontrast head CT was negative for hemorrhage, acute ischemic changes. After the thrombolysis patient's symptoms significantly improved, left sided weakness has improved. Patient's vitals are stable, she is pending repeat head CT and MRI. She is downgraded to the floors 07/04/2024 and will be assigned to team A. Plan of care discussed with attending Dr. Lopez. Myesha Varela MD, PGY 1.
[2024-07-05] VITALS (30 sets, daily range): BP systolic 107–178; BP diastolic 64–112; PULSE 59–98; RESP 12–98; TEMP 36.5; O2SAT 94–100
--- NOTE | 2024-07-05 | XR_ITS ---
Examinations: MRI Brain without intravenous contrast. MRA brain without intravenous contrast. MRA carotids without intravenous contrast 3-D vascular reconstructions Date and time of exam: July 05, 2024 1107 hours INDICATIONS: Onset ataxia slurred speech left-sided body weakness dizziness beginning July 03, 2024 Technique: Multiple axial and sagittal images of the brain have been obtained MRA brain carotid images without contrast obtained, including 3-D postprocessing, vascular maximum intensity projection images Findings: [place] is not enlarged. The optic chiasm and infundibular stalk are not remarkable. Prepontine and interpeduncular cisterns are not enlarged. No localized enlargement of the medulla or madeleine. Fourth ventricle and cerebellar tonsils normal in position. Subacute hemorrhage is not seen. Fourth ventricle is midline. Mass in the cerebellopontine angle region is not evident. 7th and 8th nerve complexes exhibits symmetry. Globes are symmetrical with no retro-orbital mass. Increased white matter signal not seen Diffusion-weighted images demonstrate no focus of restricted diffusion Mass-effect upon the ventricular system is not identified. MRA carotid images no significant carotid stenoses. MRA brain images no large vessel occlusions Impression: Negative for acute hemorrhage mass effect or midline shift No acute infarct No MR findings diagnostic for demyelinating disease No significant carotid stenoses No large vessel cerebral arterial occlusions
--- NOTE | 2024-07-05 04:58 | PC.NURSE ---
CALLED CT DEPT. AROUND 2099 TO INFORM THEM OF THE STAT CT OF HEAD (CT ORDERED AT 2038). STRUCTURAL STEEL ENGINEER FARHAD CALLED AND REMINDED CT DEPT AROUND 2229. I CALLED CT AGAIN AT 338, THEY STATED THAT THEY WOULD CALL ME BACK. THEY CALLED BACK AT 351, STATING THAT THEY WERE READY FOR THE PT. PT SENT TO CT VIA W/C.
[2024-07-05 05:08] LABS: Basophils % (Auto) 0 % (0-2.5); Eosinophils # (Auto) 0.2 Thou/mm3 (0.0-0.5); Eosinophils % (Auto) 3 % (0-10); Hematocrit 42.3 % (36.0-46.0); Hemoglobin 13.5 g/dL (12.0-16.0); Immature Granulocytes % (Auto) 0 % (0-0); Immature Granulocytes Auto 0.02 Thou/mm3 (0.00-0.00); Lymphocytes # (Auto) 1.6 Thou/mm3 (1.0-4.8); Lymphocytes % (Auto) 23 % (10-50); Mean Corpuscular HGB Conc 31.9 g/dl (31.0-37.0); Mean Corpuscular Hemoglobin 27.2 pg (25.0-35.0); Mean Corpuscular Volume 85 fL (80-100); Monocytes # (Auto) 0.4 Thou/mm3 (0.0-0.8); Monocytes % (Auto) 5 % (0-12); Neutrophils # (Auto) 4.9 Thou/mm3 (1.8-7.7); Neutrophils % (Auto) 69 % (37-80); Nucleated Red Blood Cell % 0 /100 WBC (0); Platelet Count 373 Thou/mm3 (140-440); RDW Standard Deviation 46.1 fL (36.4-46.3); Red Blood Count 4.97 Miln/mm3 (4.00-5.20); White Blood Count 7.2 Thou/mm3 (3.6-11.0)
--- NOTE | 2024-07-05 05:13 | PRELIM_ITS ---
CT scan of the head without intravenous contrast (axial sections with sagittal and coronal reformats). July 05, 2024 at 0406 hours Clinical History: Status post cerebrovascular accident. Comparison: None Findings: No evidence of intracranial hemorrhage, mass effect or midline shift. The ventricles and CSF spaces are unremarkable. The calvarium is unremarkable. The mastoid air cells and the visualized paranasal sinuses are clear. Impression: No evidence of intracranial hemorrhage, mass effect or midline shift. Aspect score 10. Report Electronically Signed By: Aron Taylor 07/05/2024 5:12:51 AM [EST]
[2024-07-05 05:36] LABS: Anion Gap 11 (7-16); BUN/Creatinine Ratio 15 Ratio (12-20); Blood Urea Nitrogen 12 mg/dL (9-23); Calcium 9.7 mg/dL (8.3-10.6); Carbon Dioxide 24.9 mMol/L (20.0-31.0); Chloride 104 mMol/L (98-107); Creatinine (Component) 0.8 mg/dL (0.6-1.3); Glucose 98 mg/dL (74-106); Osmolality,Calculated 279 (275-295); Potassium 3.7 mMol/L (3.4-5.1); Sodium 140 mMol/L (136-145); eGFR > 60 See Note
--- NOTE | 2024-07-05 09:23 | CHAP ---
Patient expressed gratitude for visit and prayer
[2024-07-05] MEDS: LABETALOL INJ 5 MG/ML VIAL 20 ML 10 MG IVP (10:53)
[2024-07-05] MEDS: hydrALAZINE INJ 20 MG/ML VIAL 10 MG IV (12:11)
[2024-07-05] MEDS: LOSARTAN POTASSIUM 25 MG TABLET PO (12:11)
--- NOTE | 2024-07-05 14:59 | PD.RESPRO ---
Documentation for date of: 07/05/24 Subjective Subjective Interval history: No overnight acute event This morning at bedside patient is AO x 4, respond to question properly, denied any acute complaints, speech has improved, no focal deficits noted ambulating, patient has been hypertensive for which she has been receiving labetalol. She stated that at home was not taking his blood pressure medications and instead she was taking a black tea to help reduce the BP naturally. We counseled the patient about importance of taking his blood pressure medications. Brain MRI was negative for stroke for which patient can be discharged per neurology standpoint with daughter atorvastatin 80 mg p.o. as well as aspirin 81 mg p.o. daily and follow-up with neurology 2 weeks after discharge and healthy lifestyle modifications. Patient will need to stop hormonal replacement therapy with estrogen patch upon discharge. Exam Vital Signs Temp Pulse Resp BP Pulse Ox O2 Del Method 97.7 F 70 22 H 159/112 H 98 Room Air 07/05/24 07:00 07/05/24 12:11 07/05/24 10:47 07/05/24 12:11 07/05/24 10:47 07/05/24 09:00 Narrative Exam General: No acute distress, well appearing, alert, interactive, AO x 4 HEENT: NC/AT, PERRL, EOMI, Good conjugate gaze, moist mucous membranes, oropharynx clear. Neck: Supple, No masses, No adenopathy, carotid pulse 2+ bilaterally without bruits, No JVD, normal range of motion. Chest: Symmetrical, atraumatic, and with equal expansion , Nontender on palpation no deformity and no crepitus. CVS: S1 and S2 present, Regular rate and rhythm, No murmurs, rubs or gallops perceived during auscultation. Lungs: Normal respiratory effort, CTAB, no wheezing, rhonchi or rales perceived during auscultation, No intercostal or subcostal retraction. Abdomen : Soft, no tenderness to palpation, no guarding ,no rebound, +BS, no organomegaly. Extremities: No edema, warm well perfused, normal tone and ROM, cap refill less than 2, +2 dp equal bilaterally, able to move all 4 extremities spontaneously. Skin: Intact, no rashes, no lesions, no erythema or jaundice noted Neuro: AOx4, cranial nerves II through XII intact, reflex symmetric and sensation normal, no focal neurologic deficits noted, GCS 15, strength 5/5, mild dysarthria, gait not ataxia noted, [id number] test without dysmetria, sensation preserved, no hemineglect, moving all 4 extremities spontaneously Psych: Appropriate mood and affect. Objective Labs 07/05/24 04:20 07/05/24 04:20 Labs: Laboratory Results - last 24 hr 07/05/24 04:20 WBC 7.2 RBC 4.97 Hgb 13.5 Hct 42.3 MCV 85 MCH 27.2 MCHC 31.9 RDW Std Deviation 46.1 Plt Count 373 D Neut % (Auto) 69 Lymph % (Auto) 23 [place] % (Auto) 5 Eos % (Auto) 3 Baso % (Auto) 0 Neut # (Auto) 4.9 Lymph # (Auto) 1.6 [place] # (Auto) 0.4 Eos # (Auto) 0.2 Baso # (Auto) 0.0 Immature Gran # (Auto) 0.02 H Absolute Nucleated RBC 0.00 Immature Gran % 0 Nucleated RBC % 0 Sodium 140 Potassium 3.7 Chloride 104 Carbon Dioxide 24.9 Anion Gap 11 BUN 12 Creatinine 0.8 Estim Creat Clear Calc 89.0 eGFR > 60 BUN/Creatinine Ratio 15 Glucose 98 Calculated Osmolality 279 Calcium 9.7 Quality Measures Quality Measures none Assessment & Plan Assessment Current Active Medications: Generic Name Dose Route Start Last Admin Trade Name Freq PRN Reason Stop Dose Admin Aspirin 81 mg 07/05/24 14:00 Aspirin Ec 81 Mg Tabec PO 08/04/24 13:59 QDAY FRANK Atorvastatin Calcium 80 mg 07/04/24 21:00 07/04/24 20:43 Atorvastatin Calcium 20 Mg Tablet PO 08/03/24 20:59 80 mg HS FRANK Administration Losartan Potassium 25 mg 07/05/24 11:30 07/05/24 12:11 Losartan Potassium 25 Mg Tablet PO 08/04/24 11:29 25 mg QDAY FRANK Administration Ondansetron HCl 4 mg 07/03/24 18:20 Ondansetron Inj 2 Mg/Ml Inj 2 Ml IV 08/02/24 18:19 Q4HR PRN NAUSEA OR VOMITING Plan #Acute ischemic stroke rule out #TIA vs hypertensive emergency Patient was in her usual state of health when she started to present unsteady gait and dizziness At the ED blood pressure was 204/145 consistent with hypertensive emergency Patient stated that was on hormone replacement therapy and was recently switched from p.o. medications to patches Due to patient presented slurred speech and left hemiparesis stroke alert was called and teleneurologist recommend tenecteplase the patient was in the 2.5-hour window Symptoms improved after ministration of IV tenecteplase and patient was transferred to the ICU for close monitoring lipid panel showed dyslipidemia with triglycerides 472 and cholesterol 220, cholesterol/HDL ratiol 7.4, TSH within normal limits Head CT was negative for acute hemorrhage, mass effect or midline shift, head/neck CTA showed no large vessel occlusions or anterior cerebral artery branches, poor filling of the posterior cerebral artery, poor filling in general of the cerebral vessels. Brain MRI per stroke protocol was negative for acute stroke most likely patient etiology was secondary to TIA versus hypertensive emergency Plan: ? Atorvastatin 80 mg p.o. q. night ? Aspirin 81 mg p.o. daily ? Stop estrogen patch for hormone replacement therapy ? Continue physical therapy #Dyslipidemia Patient lipid panel show dyslipidemia with triglyceride 474 cholesterol 228 cholesterol/HDL ratio 7.4 ? Atorvastatin 80 mg p.o. q. night #Hypertensive emergency resolved Plan: ? Losartan 50 mg p.o. daily Patient discussed with my attending Dr Christine Jin MD PGY-3 Disclaimer: Despite multiple revisions, due to the dictation software being used, the document bellow may not be free of grammatical errors including phonetic/typographic errors. However, this does not deter from our commitment to providing health care in the patient's best interest in mind. Attending Provider Attestation/Addendum Have seen and examined the patient at the bedside and I agree with the resident's findings, assessment and plan of care. Continue with the current management. Reassurance given to the patient regarding the negative MRI brain. Continue with vascular risk factors reduction with aspirin and statin. Follow-up in 2 weeks.
--- NOTE | 2024-07-05 15:01 | PC.SS ---
SS follow up: referral for outpatient PT was faxed to [facility] for physical therapy.
--- NOTE | 2024-07-05 17:33 | ESDS_ITS ---
<Statement entered by Lilian Leal DO - 07/06/24 07:59> I, Lilian Leal DO, attest that I was physically present for the velazquez portions of the service and evaluated the patient with the resident and I reviewed and discussed the case with the resident and agree with the resident's findings and plans of care as documented above Planned Discharge Date 07/05/24 DS: Providers Provider Date of admission: 07/03/24 21:32 Primary care physician: Ranulfo Mccarty MD Admitting Provider: Alfredo Lopez MD Attending Provider on Admission: Lori Way MD Consults: 07/03/24 18:20 Consult to Neurology / Tele-Neurology Routine Comment: Consulting Provider: [facility] 07/03/24 21:33 Consult to Neurology / Tele-Neurology Routine Comment: STROKE Consulting Provider: Mynor King 07/03/24 22:49 Referral Physical Therapy Routine Comment: Physician Instructions: Referral Speech Therapy Routine Comment: Attending Provider on DC: Ludivina Navarrete MD Discharging Provider: Ludivina Navarrete MD DS: Diagnosis Problem List Completed Was Problem List Reviewed/Reconciled?: Yes Hospital Course Hospital Course Hospital course: Mr. Camarena is a 49-year-old female with past medical history significant for primary hypertension (noncompliant with medications) presented to [facility] ED on 07/03/2024 complaining of dizziness, right- sided weakness/numbness and slurred speech. Stroke alert was called patient was within the 4-1/2 when does of acute onset of symptoms therefore tenecteplase was administered. Patient was admitted to the ICU for 24-hour observation and neurologist was consulted. On admission patient was also in hypertensive emergency with blood pressure of 204/145. Patient's symptoms have returned to baseline, imagings including CT and MRI are negative for acute CVA and per neurologist as well as neuro exam patient has returned to baseline. Her weakness has resolved, and her speech is normal as well as repetition. Patient is cleared to be discharged from neurology. Per neuro patient's symptoms were likely secondary to either TIA or hypertensive emergency with resolution of all her symptoms within 24 hours. Patient is hemodynamically stable blood pressure is within normal limits and patient is ready to be discharged home with aspirin and a statin as well as losartan 50 mg daily for blood pressure. Patient is advised to check her blood pressure twice a daily and keep a log to share with her primary care physician. Discharge Recommendations Start taking aspirin 81 mg and atorvastatin 80 mg daily. Start taking losartan 50 mg daily. Discontinue home ibuprofen and Premarin. Continue other home medications as prescribed. Check blood pressure twice daily and record it. Follow up with neurology Dr. King and PCP within 2 weeks. Return to ED if symptoms recur or worsen. Hospitalization Diagnosis #Acute ischemic stroke ruledout #TIA vs hypertensive emergency #Dyslipidemia #Hypertensive emergency resolved Assessment and plan discussed with my attending physician Dr. Mel Navarrete (PGY-1)- Internal medicine resident Time Spent with Patient Time attestation: Total time spent providing and/or coordinating discharge services: Time spent: Greater than 30 minutes Quality: Stroke Pt Provided Written Stroke Discharge Instructions: Yes Exam Vital Signs Temp Pulse Resp BP Pulse Ox O2 Del Method 97.7 F 95 20 124/79 99 Room Air 07/05/24 07:00 07/05/24 16:00 07/05/24 15:01 07/05/24 15:01 07/05/24 15:01 07/05/24 13:00 Narrative Exam GENERAL: A&Ox3 . Awake pleasant female, cooperative and a lisp is noted when talking, Not in acute distress NEURO: no focal neurological deficits HEENT: Atraumatic, Normocephalic. mucous membranes moist. Eyes open, symmetrical, & clear HEART: Normal Heart Sounds LUNGS: Clear to auscultation with no wheezing or crackles. ABDOMEN: soft, non-distended, non-tender, bowel sounds heard, no guarding or rebound tenderness SKIN: No Rash or ecchymoses EXTREMITIES: No edema, tenderness, able to move all 4 extremities, pedal pulses palpated Discharge Plan Plan Patient Disposition: HOME (Self Care) Patient condition on transfer: Stable Care Plan Goals: Start taking aspirin 81 mg and atorvastatin 80 mg daily. Start taking losartan 50 mg daily. Discontinue home ibuprofen and Premarin. Continue other home medications as prescribed. Check blood pressure twice daily and record it. Follow up with neurology Dr. King and PCP within 2 weeks. Return to ED if symptoms recur or worsen. Prescriptions/Referrals Prescriptions/Med Rec: New aspirin 81 mg tablet,delayed release (DR/EC) 81 mg PO QDAY Qty: 30 2RF atorvastatin 80 mg tablet 80 mg PO QPM Qty: 30 2RF losartan 50 mg tablet 50 mg PO QDAY Qty: 30 1RF Continued hydrocodone-acetaminophen 10-325 mg tablet 1 tab PO Q6H MDD 4 PRN (Reason: pain) Qty: 20 0RF Discontinued ibuprofen 800 mg Tablet 800 mg PO Q8H PRN (Reason: Pain) Premarin 0.625 mg tablet 0.265 mg PO DAILY Patient Comments: TOME 1 TABLETA POR V A ORAL TODOS LOS D Referrals: Ranulfo Mccarty MD [Primary Care Provider] - Mynor King MD [Physician] - Patient/Caregiver Discharge Instructions Print Language: Belgian Stand Alone Forms: [employer] Award Info., Patient Portal Info Letter Discharge Order Discharge Orders: Discharge (Routine); Ordered 07/05/24 Ordered By: Barron Velasquez Quality Discharge Quality Measures VTE prophylaxis
== END 2024-07-05 18:45 | disposition home or self-care (01) | DRG 199 ==
LOC: SERX 19:47 → SERHOLD 21:45 → S2SX 23:00
PROVIDERS: Nurse Practitioner Family; Student in an Organized Health Care Education/Training Program; Admitting Provider Student in an Organized Health Care Education/Training Program; Emergency Provider Emergency Medicine; PCP Family Medicine; Visit Provider Internal Medicine
DX: I16.1 Hypertensive emergency (principal); R47.81 Slurred speech; I10 Essential (primary) hypertension; R29.703 NIHSS score 3; G83.14 Monoplegia of lower limb affecting left nondominant side; E78.5 Hyperlipidemia, unspecified
CPT/HCPCS: 36415; 70450; 70496; 70498; 70544; 80048; 80053; 80061; 80307; 81001; 83036; 83735; 84443; 84484; 84703; 85025; 85610; 85730; 87077; 87081; 87086; 87186; 92610; 93306; 97162; A4649; J0360; J3101; J3490; Q9967; A9270; J1920